=== PATIENT | female | born 1970 | race Caucasian/White ===

== ENCOUNTER 2017-10-06 15:59 | Inpatient (IN) | payer OTHER ==
[2017-10-06 19:53] VITALS: BMI 20.2
--- NOTE | 2017-10-06 22:54 | HP ---
Admission ROS [facility] Chief Complaint: Seeking admission to Rehab Allergies/Adverse Reactions: Allergies Allergy/AdvReac Type Severity Reaction Status Date / Time Penicillins Allergy Intermediate Swelling Verified 10/06/17 20:14 Sulfa (Sulfonamide Allergy Intermediate Hives Verified 10/06/17 20:13 Antibiotics) eggplant Allergy Uncoded 10/06/17 20:14 History of Present Illness: 47 years old female with a history of marijuana dependence, on prescription xanax and occasional alcohol dependence is seeking admission to Rehab. Patient reports that she has not been in rehab. before and this is her first admission to [facility]. She has medical history of depression and anxiety. She denies suicide attempt or suicidal ideation at this time. Exam Limitations: No Limitations - Ebola screening Have you traveled outside of the country in the last 21 days: No (N) Have you had contact with anyone from an Ebola affected area: No Have you been sick,other than usual withdrawal symptoms: No Do you have a fever: No - Review of Systems Constitutional: No Symptoms Reported EENT: reports: No Symptoms Reported Respiratory: reports: No Symptoms reported Cardiac: reports: No Symptoms Reported GI: reports: No Symptoms Reported : reports: No Symptoms Reported Musculoskeletal: reports: No Symptoms Reported Integumentary: reports: No Symptoms Reported Neuro: reports: No Symptoms reported Endocrine: reports: No Symptoms Reported Hematology: reports: No Symptoms Reported Psychiatric: reports: No Sypmtoms Reported, Mood/Affect Appropiate, Orientated x3 Other Systems: Reviewed and Negative Patient History - Patient Medical History Hx Anemia: No Hx Asthma: No Hx Chronic Obstructive Pulmonary Disease (COPD): No Hx Cancer: No Hx Cardiac Disorders: No Hx Congestive Heart Failure: No Hx Hypertension: No Hx Hypercholesterolemia: No Hx Pacemaker: No HX Cerebrovascular Accident: No Hx Seizures: No Hx Dementia: No Hx Diabetes: No Hx Gastrointestinal Disorders: No Hx Genitourinary Disorders: No Hx Sexually Transmitted Disorders: No Hx Renal Disease (ESRD): No Hx Thyroid Disease: No Hx Human Immunodeficiency Virus (HIV): No (Negative 2003) Hx Hepatitis C: No Hx Depression: Yes (Lexapro) Hx Suicide Attempt: No (Denies suicide attempt and suicidal ideation at this time) Hx Bipolar Disorder: No Hx Schizophrenia: No Other Medical History: Anxiety - Lexapro, Xanax - Patient Surgical History Past Surgical History: Yes Hx Neurologic Surgery: No Hx Cataract Extraction: No Hx Cardiac Surgery: No Hx Lung Surgery: No Hx Breast Surgery: No Hx Breast Biopsy: No Hx Abdominal Surgery: No Hx Appendectomy: No Hx Cholecystectomy: No Hx Genitourinary Surgery: No Hx Section: No Hx Orthopedic Surgery: No Other Surgical History: Rhinoplasty Anesthesia Reaction: No - PPD History Previous Implant?: Yes Documented Results: Negative w/o proof Implanted On Prior [facility] Admission?: No PPD to be Administered?: Yes - Reproductive History Patient is a Female of Child Bearing Age (11 -55 yrs old): Yes Last Menstrual Period: 01/23/15 LMP comment: MENOPAUSAL Patient : No (LMP: 2014) - Smoking Cessation Smoking history: Never smoked Have you smoked in the past 12 months: No Hx Chewing Tobacco Use: No Initiated information on smoking cessation: No - Substance & Tx. History Hx Alcohol Use: No Hx Substance Use: Yes Substance Use Type: Marijuana Hx Substance Use Treatment: No - Substances Abused Alcohol Route: Oral Frequency: 1-2 times per week Amount used: Wine 1 glass Age of first use: 17 Date of Last Use: 10/04/17 Family Disease History - Family Disease History Family History: Denies Admission Physical Exam [facility] - Vital Signs Vital Signs: Vital Signs - 24 hr 10/06/17 19:50 Temperature 97.7 F Pulse Rate 74 Respiratory 18 Rate Blood Pressure 123/69 - Physical General Appearance: Yes: Within Normal Limits HEENTM: Yes: EOMI, Normal ENT Inspection, Normocephalic, Normal Voice, MICHELLE Respiratory: Yes: Lungs Clear, Normal Breath Sounds, No Respiratory Distress Neck: Yes: Supple Breast: Yes: Breast Exam Deferred Cardiology: Yes: Regular Rhythm, Regular Rate Abdominal: Yes: Within Normal Limits, Normal Bowel Sounds, Soft Genitourinary: Yes: Within Normal Limits Back: Yes: Normal Inspection Musculoskeletal: Yes: Within Normal Limits Extremities: Yes: Normal Inspection Neurological: Yes: Alert, Normal Mood/Affect Integumentary: Yes: Warm Lymphatic: Yes: Within Normal Limits - Diagnostic (1) Cannabis dependence, uncomplicated Current Visit: Yes Status: Chronic (2) Depression Current Visit: Yes Status: Chronic Qualifiers: Depression Type: unspecified Qualified Code(s): F32.9 - Major depressive disorder, single episode, unspecified (3) Anxiety Current Visit: Yes Status: Chronic Cleared for Admission [facility] - Detox or Rehab [facility] Level of Care: Observation Bed Claeared for Rehab Admission: Yes [facility] Breath Alcohol Content Breath Alcohol Content: 0 Urine Pregancy Test - Result Urine Test Results: Negative- NO Line Present Urine Drug Screen - Results Drug Screen Negative: No Urine Drug Screen Results: THC-Marijuana, BZO-Benzodiazepines Inpatient Rehab Admission - Initial Determination Are CD services needed?: Yes Free of communicable disease: Yes Not in need of hospitalization: Yes - Rehab Admission Criteria Previous failed treatment: Yes Poor recovery environment: Yes Comorbidities: Yes Lacks judgement: No Patient is meeting Inpatient Rehab admission criteria:: Yes
[2017-10-06] MEDS ORDERED: MENTHOL/PHENOL 1 EACH UD MM PRN (23:02)
[2017-10-06] MEDS ORDERED: ACETAMINOPHEN 325 MG TABLET (FP) PO PRN (23:02)
[2017-10-06] MEDS ORDERED: P-EPHED 60MG/TRIPROLIDI 2.5MG TABLET PO PRN (23:02)
[2017-10-06] MEDS ORDERED: MAGNESIUM CITRATE 300 ML BOTTLE PO PRN (23:02)
[2017-10-06] MEDS ORDERED: guaiFENesin/D-METHORPHAN HB 10 ML UNIT-DOSE CUPS PO PRN (23:02)
[2017-10-06] MEDS ORDERED: MAGNESIUM HYDROX 2400MG/30ML ORAL SUSPENSION 30 ML CUP PO PRN (23:02)
[2017-10-06] MEDS ORDERED: LOPERAMIDE HCL 2 MG CAPSULE PO PRN (23:02)
[2017-10-06] MEDS ORDERED: MAG HYDROX/AL HYDROX/SIMETH 30 ML UNIT-DOSE CUP PO PRN (23:02)
[2017-10-07] MEDS ORDERED: TUBERCULIN PPD 5 TU/0.1ML VIAL ID ONE (00:46)
[2017-10-07] MEDS: MELATONIN 5 MG TABLETS PO PRN ×2 (01:20→21:40)
[2017-10-07 02:34] LABS: URINE APPEARANCE CLOUDY; URINE BILIRUBIN NEGATIVE (<2.0 mg/dL); URINE COLOR YELLOW; URINE GLUCOSE (UA) NEGATIVE (NEGATIVE); URINE KETONE NEGATIVE (NEGATIVE); URINE LEUK ESTERASE NEGATIVE (NEGATIVE); URINE NITRITE NEGATIVE (NEGATIVE); URINE PROTEIN NEGATIVE (NEGATIVE); URINE UROBILINOGEN NEGATIVE mg/dL (0.2-1.0)
[2017-10-07] MEDS: PRENATAL VITAMINS W/ FOLIC ACID TABLET (FP) PO SCH (09:07)
[2017-10-07] MEDS: ESCITALOPRAM OXALATE 10 MG TABLET (FP) PO SCH (10:22)
--- NOTE | 2017-10-07 11:59 | EKG ---
Test Reason : Blood Pressure : / mmHG Vent. Rate : 056 BPM Atrial Rate : 056 BPM P-R Int : 158 ms QRS Dur : 094 ms QT Int : 400 ms P-R-T Axes : 068 070 066 degrees QTc Int : 386 ms SINUS BRADYCARDIA WITH SINUS ARRHYTHMIA POSSIBLE LEFT ATRIAL ENLARGEMENT BORDERLINE ECG NO PREVIOUS ECGS AVAILABLE Confirmed by Demond Chowdhury MD ([id number]) on 10/07/2017 11:58:34 AM Referred By: Confirmed By:Demond Chowdhury MD
[2017-10-07] MEDS ORDERED: PNEUMOCOCCAL 23 VACCINE 0.5 ML VIAL IM ONE (12:00)
[2017-10-07] MEDS ORDERED: PNEUMOC 13-VAL CONJ-DIP CRM/PF 0.5 ML DISP.SYRIN IM ONE (12:00)
[2017-10-07 15:30] LABS: CHLORIDE 107 mmol/L (98-107); SODIUM 141 mmol/L (136-145)
[2017-10-07 15:39] LABS: ALBUMIN 3.5 g/dl (3.4-5.0); ALK PHOS 64 U/L (45-117); ANION GAP 7 (8-16); BILIRUBIN,TOTAL 0.3 mg/dL (0.2-1.0); BLOOD UREA NITROGEN 9 mg/dL (7-18); CALCIUM 9.1 mg/dL (8.5-10.1); CO2 27 mmol/L (21-32); CREATININE 0.7 mg/dL (0.55-1.02); GLUCOSE,RANDOM 145 mg/dL (74-106); SGOT/AST 14 U/L (15-37); SGPT/ALT 18 U/L (12-78); TOT PROT 6.5 g/dl (6.4-8.2)
[2017-10-07 16:07] LABS: HEMATOCRIT 40.7 % (32.4-45.2); HEMOGLOBIN 13.9 GM/dL (10.7-15.3); MCH 34.3 pg (25.7-33.7); MCHC 34.2 g/dl (32.0-36.0); MEAN CELL VOLUME 100.6 fl (80-96); MEAN PLT VOLUME 8.3 fl (7.5-11.1); PLATELET COUNT 221 K/MM3 (134-434); RBC 4.05 M/mm3 (3.60-5.2); RDW 13.4 % (11.6-15.6); WHITE BLOOD COUNT 3.3 K/mm3 (4.0-10.0)
[2017-10-07] MEDS: THIAMINE HCL 100 MG TABLET (FP) PO SCH (21:40)
[2017-10-07] MEDS: IBUPROFEN 400 MG TABLET (FP) PO PRN (21:41)
--- NOTE | 2017-10-08 08:30 | HP ---
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 Medical History: H/O Lumbar fracture in 2011. Psychiatric History: Reports history of depression since 2001 when her son was born,dx with depression.She was treated by psychiatrsit at [facility] in [facility].Current medications:Lexapro 10 mg po daily and Xanax 1 mg po daily prn for anxiety.No psychiatric admissions,no suicidal atempts reported.Still anxious,with mood instability. Physical/Sexual Abuse/Trauma History: Patient reports being raised in disfuncional family,abandoned. Vital Signs: Vital Signs - 24 hr 10/08/17 10/08/17 10/08/17 00:30 03:30 07:09 Temperature 97.7 F Pulse Rate 49 L Respiratory 16 16 18 Rate Blood Pressure 120/78 Allergies/Adverse Reactions: Allergies Allergy/AdvReac Type Severity Reaction Status Date / Time Penicillins Allergy Intermediate Swelling Verified 10/06/17 20:14 Sulfa (Sulfonamide Allergy Intermediate Hives Verified 10/06/17 20:13 Antibiotics) eggplant Allergy Uncoded 10/06/17 20:14 Concur with the findings of this exam: Yes - Substance Abuse/Tx History Hx Alcohol Use: No Hx Substance Use: Yes (marjuana since 2013( a few blunts daily),.) Substance Use Type: Cocaine, Marijuana Hx Substance Use Treatment: Yes (this is her first inpatient rehabilitation) Mental Status Exam - Mental Status Exam Alert and Oriented to: Time, Place, Person Cognitive Function: Grossly Intact Patient Appearance: Unkempt Mood: Anxious Affect: Mood Congruent, Labile Patient Behavior: Cooperative Speech Pattern: Clear Voice Loudness: Normal Thought Process: Goal Oriented Thought Disorder: Not Present Hallucinations: Denies Suicidal Ideation: Denies Homicidal Ideation: Denies Insight/Judgement: Fair Sleep: Fair Appetite: Good Muscle strength/Tone: Normal Gait/Station: Normal Psychiatric Findings - Problem List ([place] 1, 2,3) (1) Cannabis dependence, uncomplicated Current Visit: Yes Status: Chronic (2) Alcohol dependence Current Visit: Yes Status: Chronic (3) Substance induced mood disorder Current Visit: Yes Status: Chronic (4) PTSD (post-traumatic stress disorder) Current Visit: Yes Status: Chronic - Initial Treatment Plan Initial Treatment Plan: Lexapro 10 mg po daily.Will monitor progress.
[2017-10-08] MEDS: IBUPROFEN 400 MG TABLET (FP) PO PRN ×2 (09:03→21:24)
[2017-10-08] MEDS: ESCITALOPRAM OXALATE 10 MG TABLET (FP) PO SCH (09:04)
[2017-10-08] MEDS: PRENATAL VITAMINS W/ FOLIC ACID TABLET (FP) PO SCH (09:05)
--- NOTE | 2017-10-08 13:49 | PN ---
[facility] Progress [facility] Note: Patient seen for small blister on bottom of left foot. Patient states she is an avid runner. Plantar aspect of foot intact. Small blister noted. Unopened. No redness or discharge noted. No treatment required at this point except to monitor for changes and pressure relief. Patient advised to notify MD/RN/COMMERCIAL LINES ACCOUNT MANAGER for any changes in skin condition.
[2017-10-08] MEDS: MELATONIN 5 MG TABLETS PO PRN (21:25)
[2017-10-08] MEDS: THIAMINE HCL 100 MG TABLET (FP) PO SCH (21:25)
[2017-10-09] MEDS: ESCITALOPRAM OXALATE 10 MG TABLET (FP) PO SCH ×2 (09:50→21:16)
[2017-10-09] MEDS: PRENATAL VITAMINS W/ FOLIC ACID TABLET (FP) PO SCH (09:51)
[2017-10-09] MEDS: IBUPROFEN 400 MG TABLET (FP) PO PRN ×2 (12:03→21:17)
[2017-10-09] MEDS: THIAMINE HCL 100 MG TABLET (FP) PO SCH (21:16)
[2017-10-09] MEDS: MELATONIN 5 MG TABLETS PO PRN (22:26)
[2017-10-10] MEDS: PRENATAL VITAMINS W/ FOLIC ACID TABLET (FP) PO SCH (10:33)
[2017-10-10] MEDS: IBUPROFEN 400 MG TABLET (FP) PO PRN ×2 (13:11→21:06)
[2017-10-10] MEDS: ESCITALOPRAM OXALATE 10 MG TABLET (FP) PO SCH (21:06)
[2017-10-10] MEDS: THIAMINE HCL 100 MG TABLET (FP) PO SCH (21:06)
[2017-10-10] MEDS: MELATONIN 5 MG TABLETS PO PRN (22:43)
[2017-10-11] MEDS: IBUPROFEN 400 MG TABLET (FP) PO PRN ×2 (10:02→21:17)
[2017-10-11] MEDS: PRENATAL VITAMINS W/ FOLIC ACID TABLET (FP) PO SCH (10:02)
[2017-10-11] MEDS: THIAMINE HCL 100 MG TABLET (FP) PO SCH (21:17)
[2017-10-11] MEDS: ESCITALOPRAM OXALATE 10 MG TABLET (FP) PO SCH (21:17)
[2017-10-11] MEDS: MELATONIN 5 MG TABLETS PO PRN (21:18)
[2017-10-12] MEDS: PRENATAL VITAMINS W/ FOLIC ACID TABLET (FP) PO SCH (10:05)
[2017-10-12] MEDS: IBUPROFEN 400 MG TABLET (FP) PO PRN ×2 (10:05→21:33)
[2017-10-12] MEDS: MELATONIN 5 MG TABLETS PO PRN (21:33)
[2017-10-12] MEDS: ESCITALOPRAM OXALATE 10 MG TABLET (FP) PO SCH (21:33)
[2017-10-12] MEDS: THIAMINE HCL 100 MG TABLET (FP) PO SCH (21:33)
[2017-10-13] MEDS: IBUPROFEN 400 MG TABLET (FP) PO PRN ×2 (10:17→20:09)
[2017-10-13] MEDS: PRENATAL VITAMINS W/ FOLIC ACID TABLET (FP) PO SCH (10:18)
[2017-10-13] MEDS: ESCITALOPRAM OXALATE 10 MG TABLET (FP) PO SCH (21:14)
[2017-10-13] MEDS: MELATONIN 5 MG TABLETS PO PRN (21:14)
[2017-10-13] MEDS: THIAMINE HCL 100 MG TABLET (FP) PO SCH (21:14)
[2017-10-13] MEDS ORDERED: diphenhydrAMINE HCL 50 MG CAPSULE PO ONE (22:30)
[2017-10-14] MEDS: PRENATAL VITAMINS W/ FOLIC ACID TABLET (FP) PO SCH (10:22)
[2017-10-14] MEDS: IBUPROFEN 400 MG TABLET (FP) PO PRN ×2 (10:23→21:01)
--- NOTE | 2017-10-14 13:31 | PN ---
[facility] Progress Note Note: Vital Signs Temperature 97.7 F 10/14/17 07:09 Pulse Rate 56 L 10/14/17 07:09 Respiratory Rate 16 10/14/17 07:09 Blood Pressure 103/63 10/14/17 07:09 O2 Sat by Pulse Oximetry (%) Hx of eczema. c/o of generalized body itch relieved with Benadryl and dry skin. - A & D oint top to keep skin hydrated - Benadryl prn increase fluids continue to monitor
[2017-10-14] MEDS: THIAMINE HCL 100 MG TABLET (FP) PO SCH (21:01)
[2017-10-14] MEDS: ESCITALOPRAM OXALATE 10 MG TABLET (FP) PO SCH (21:01)
[2017-10-14] MEDS: MELATONIN 5 MG TABLETS PO PRN (21:01)
[2017-10-14] MEDS: diphenhydrAMINE HCL 25 MG CAPSULE (FP) PO PRN (21:03)
[2017-10-14] MEDS: VITAMINS A AND D TOPICAL OINTMENT 60 GM TUBE TP SCH (23:14)
[2017-10-15] MEDS: IBUPROFEN 400 MG TABLET (FP) PO PRN ×2 (10:15→22:15)
[2017-10-15] MEDS: VITAMINS A AND D TOPICAL OINTMENT 60 GM TUBE TP SCH (10:15)
[2017-10-15] MEDS: PRENATAL VITAMINS W/ FOLIC ACID TABLET (FP) PO SCH (10:15)
[2017-10-15] MEDS: diphenhydrAMINE HCL 25 MG CAPSULE (FP) PO PRN ×2 (11:03→21:33)
[2017-10-15] MEDS: THIAMINE HCL 100 MG TABLET (FP) PO SCH (21:32)
[2017-10-15] MEDS: ESCITALOPRAM OXALATE 10 MG TABLET (FP) PO SCH (21:32)
[2017-10-15] MEDS: MELATONIN 5 MG TABLETS PO PRN (21:32)
[2017-10-15] MEDS: MINERAL OIL/PETROLAT/WATER TOPICAL CREAM 113 GM JAR TP SCH (21:34)
[2017-10-15] MEDS ORDERED: PT OWN MED DRAWER 7, Y5N ONE (21:35)
[2017-10-16] MEDS: MINERAL OIL/PETROLAT/WATER TOPICAL CREAM 113 GM JAR TP SCH ×2 (10:15→21:57)
[2017-10-16] MEDS: IBUPROFEN 400 MG TABLET (FP) PO PRN ×2 (10:16→21:54)
[2017-10-16] MEDS: PRENATAL VITAMINS W/ FOLIC ACID TABLET (FP) PO SCH (10:18)
[2017-10-16] MEDS: diphenhydrAMINE HCL 25 MG CAPSULE (FP) PO PRN ×2 (10:24→21:54)
[2017-10-16] MEDS: ESCITALOPRAM OXALATE 10 MG TABLET (FP) PO SCH (21:54)
[2017-10-16] MEDS: MELATONIN 5 MG TABLETS PO PRN (21:54)
[2017-10-16] MEDS: THIAMINE HCL 100 MG TABLET (FP) PO SCH (21:54)
[2017-10-17] MEDS: IBUPROFEN 400 MG TABLET (FP) PO PRN ×2 (10:05→21:15)
[2017-10-17] MEDS: MINERAL OIL/PETROLAT/WATER TOPICAL CREAM 113 GM JAR TP SCH ×2 (10:05→21:17)
[2017-10-17] MEDS: diphenhydrAMINE HCL 25 MG CAPSULE (FP) PO PRN ×2 (10:06→21:16)
[2017-10-17] MEDS: PRENATAL VITAMINS W/ FOLIC ACID TABLET (FP) PO SCH (10:07)
[2017-10-17] MEDS: MELATONIN 5 MG TABLETS PO PRN (21:16)
[2017-10-17] MEDS: ESCITALOPRAM OXALATE 10 MG TABLET (FP) PO SCH (21:16)
[2017-10-17] MEDS: THIAMINE HCL 100 MG TABLET (FP) PO SCH (21:16)
[2017-10-18] MEDS ORDERED: PT OWN MED DRAWER 7, Y5N ONE ×2 (08:33→19:42)
[2017-10-18] MEDS: diphenhydrAMINE HCL 25 MG CAPSULE (FP) PO PRN ×2 (09:58→21:47)
[2017-10-18] MEDS: IBUPROFEN 400 MG TABLET (FP) PO PRN ×2 (09:58→21:47)
[2017-10-18] MEDS: PRENATAL VITAMINS W/ FOLIC ACID TABLET (FP) PO SCH (10:00)
[2017-10-18] MEDS: MINERAL OIL/PETROLAT/WATER TOPICAL CREAM 113 GM JAR TP SCH ×2 (10:00→21:50)
[2017-10-18] MEDS: MELATONIN 5 MG TABLETS PO PRN (21:47)
[2017-10-18] MEDS: THIAMINE HCL 100 MG TABLET (FP) PO SCH (21:47)
[2017-10-18] MEDS: ESCITALOPRAM OXALATE 10 MG TABLET (FP) PO SCH (21:47)
[2017-10-19] MEDS ORDERED: PT OWN MED DRAWER 7, Y5N ONE (08:21)
[2017-10-19] MEDS: IBUPROFEN 400 MG TABLET (FP) PO PRN ×2 (10:05→21:25)
[2017-10-19] MEDS: diphenhydrAMINE HCL 25 MG CAPSULE (FP) PO PRN ×2 (10:06→21:25)
[2017-10-19] MEDS: MINERAL OIL/PETROLAT/WATER TOPICAL CREAM 113 GM JAR TP SCH ×2 (10:07→22:34)
[2017-10-19] MEDS: PRENATAL VITAMINS W/ FOLIC ACID TABLET (FP) PO SCH (10:07)
[2017-10-19] MEDS: ESCITALOPRAM OXALATE 10 MG TABLET (FP) PO SCH (21:25)
[2017-10-19] MEDS: THIAMINE HCL 100 MG TABLET (FP) PO SCH (21:25)
[2017-10-19] MEDS: MELATONIN 5 MG TABLETS PO PRN (21:27)
[2017-10-20] MEDS: IBUPROFEN 400 MG TABLET (FP) PO PRN (06:08)
[2017-10-20 07:02] VITALS: BP 96/57; PULSE 80; TEMP 98.2
--- NOTE | 2017-10-20 09:25 | PN ---
Psychiatric Progress Note Vital Signs: Vital Signs Period Temp Pulse Resp BP Sys/Rosario Pulse Ox Last 24 Hr 98.2 F 80 16-16 96/57 Date of Session: 10/20/17 Chief Complaint:: Discharge visit Current Medications: Active Medications Generic Name Dose Route Start Last Admin Trade Name Freq PRN Reason Stop Dose Admin Acetaminophen 650 mg 10/06/17 23:02 Tylenol - PO Q4H PRN FEVER Al Hydroxide/Mg Hydroxide 30 ml 10/06/17 23:02 Mylanta Oral Suspension - PO Q6H PRN DYSPEPSIA Diphenhydramine HCl 25 mg 10/14/17 13:27 10/19/17 21:25 Benadryl - PO 25 mg Q6H PRN Administration FOR ITCHING Escitalopram Oxalate 10 mg 10/09/17 22:00 10/19/17 21:25 Lexapro - PO 10 mg HS JADON Administration Eucalyptus/Menthol/Phenol/Sorbitol 1 each 10/06/17 23:02 Cepastat Lozenge - MM Q4H PRN SORE THROAT Guaifenesin 10 ml 10/06/17 23:02 Robitussin Dm - PO Q6H PRN COUGH Ibuprofen 400 mg 10/06/17 23:02 10/20/17 06:08 Motrin - PO 400 mg Q6H PRN Administration Pain level 4-6 Loperamide HCl 4 mg 10/06/17 23:02 Imodium - PO Q6H PRN DIARRHEA Magnesium Citrate 300 ml 10/06/17 23:02 Citroma - PO Q48H PRN CONSTIPATION Magnesium Hydroxide 30 ml 10/06/17 23:02 Milk Of Magnesia - PO DAILY PRN CONSTIPATION Melatonin 5 mg 10/06/17 22:00 10/19/17 21:27 Melatonin PO 5 mg HS PRN Administration INSOMNIA Multi-Ingredient Lotion 1 applic 10/15/17 22:00 10/19/17 22:34 Eucerin (Small Jar) - TP Not Given BID JADON Multivit/Folic Acid/Iron 1 tab 10/07/17 10:00 10/19/17 10:07 Vitamins (Sjr) - PO Not Given DAILY JADON Pseudoephedrine/Triprolidine 1 combo 10/06/17 23:02 Actifed - PO TID PRN NASAL CONGESTION Thiamine HCl 100 mg 10/07/17 22:00 10/19/17 21:25 Vitamin B1 - PO 100 mg HS JADON Administration Current Side Effect: No Lab tests ordered: No Lab tests reviewed: Yes Provider note:: Patient completed this program today.She has met her treatment goals and will continue to address her issues on outpatient basis. Total face to face time:: 30 Psychiatric Treatment Plan - Problem List (1) Cannabis dependence, uncomplicated Current Visit: Yes (2) Alcohol dependence Current Visit: Yes (3) Substance induced mood disorder Current Visit: Yes (4) PTSD (post-traumatic stress disorder) Current Visit: Yes
== END 2017-10-20 10:04 | disposition home or self-care (01) | DRG 772 ==
LOC: YASAS 15:59 → Y3E 21:15
PROVIDERS: ADMIT Psychiatry & Neurology Psychiatry; ATTEND Psychiatry & Neurology Psychiatry
PROC: HZ42ZZZ Group Counseling for Substance Abuse Treatment, Cognitive-Behavioral (ICD-10-PCS; principal; 2017-10-06)
DX: F10.20 Alcohol dependence, uncomplicated (principal); F12.20 Cannabis dependence, uncomplicated; F19.24 Other psychoactive substance dependence with psychoactive substance-induced mood disorder; F43.10 Post-traumatic stress disorder, unspecified; F32.9 Major depressive disorder, single episode, unspecified; F41.9 Anxiety disorder, unspecified; L98.8 Other specified disorders of the skin and subcutaneous tissue; S90.822A Blister (nonthermal), left foot, initial encounter; X58.XXXA Exposure to other specified factors, initial encounter; Y93.9 Activity, unspecified; Y92.9 Unspecified place or not applicable
CPT/HCPCS: 36415; 80053; 81003; 85027; 86593; 90732; 93005; 93010; G0009